=== PATIENT | male | born 1970 | race Caucasian/White ===

== ENCOUNTER 2016-12-15 17:48 | Observation (INO) | payer BC, MEDICARE ==
[~2016-12-15] VITALS: Ht 182.9 cm; Wt 78.7 kg
[~2016-12-15 17:48] MED LIST changes: -ALPR.5T PO; -ORPH100T PO; -OXYC15TA73 PO; -TEMA30CA PO; -VENL75CA86 PO
--- OUTSIDE RECORDS SUMMARY | 2016-12-15 17:52 | XMS REPORT | Continuity of Care Document ---
Author Author [facility] Address Unknown Phone Unavailable Care Team Providers Care Construction Plant Operator Name Role Phone ADA WOMACK MD PCP [phone] Insurance Providers Payer Name Policy Number Subscriber Name Relationship Medicare A And B [id number] Lion Eagle Jr 18 Self / Same As Patient [facility] [id number] Viky Eagle N 01 Advance Directives Directive Response Recorded Date/Time Advanced Directives No 02/01/16 8:54am Chief Complaint and Reason for Visit Chief Complaint Eye Complaint Reason for Visit [id number] Problems Active Problems Medical Problem Onset Date Status Abdominal pain ~10/19/2014 Acute Contusion of hip, left Unknown Acute Cough Unknown Acute Dilantin toxicity Unknown Acute Pancreatitis 10/06/2014 Chronic Medications Current Home Medications Medication Dose Units Route Directions Days/Qty Instructions Start Date Phenytoin Sodium Extended 100 Mg 350 Mg ORAL Twice A Day 10/06/14 Prednisone 20 Mg 20 Mg ORAL Daily@10/06/14 Fexofenadine/Pseudoephedrine 1 Each 1 Each ORAL Daily@10/06/14 Levetiracetam 500 Mg 1,000 Mg ORAL Bid@10/06/14 Docusate Sodium 100 Mg 100 Mg ORAL Twice A Day as needed for Constipation 30 10/13/14 Polyethylene Glycol 119 Gm 17 Gm ORAL Daily 1 10/13/14 Oxycodone/Acetaminophen 1 Tab 1 Tab ORAL Every 6 Hours as needed for Pain 20 10/19/14 Esomeprazole Magnesium 40 Mg 40 Mg ORAL Daily 02/01/16 Lisinopril (Zestril) 10 Mg 10 Mg ORAL Daily 02/01/16 Trazodone Hcl 150 Mg 150 Mg ORAL Bedtime 02/01/16 Ropinirole Hcl 1 Mg 1 Mg ORAL Bedtime 02/01/16 Past Home Medications Medication Directions Ordered Status Levetiracetam 1,000 Mg Tablet, 500 Mg Oral Twice A Day 10/06/14 Discontinued Atenolol/Chlorthalidone 1 Each Tablet, 1 Each Oral Daily@1700 10/06/14 Discontinued Omeprazole 20 Mg Tablet.dr, 40 Mg Oral Daily@06 10/06/14 Discontinued Alprazolam 1 Mg Tablet, 1 Mg Oral Bedtime as needed for Sleep 10/08/14 Discontinued Hydromorphone Hcl 4 Mg Tab, 4 Mg Oral Every 4HRS as needed for Pain 10/13/14 Discontinued Ondansetron 4 Mg Tab.rapdis, 4 Mg Oral Every 6 Hours as needed for Nausea Discontinued Hydromorphone Hcl 2 Mg Tablet, 1-2 Tab Oral Every 6 Hours as needed for Pain 10/24/15 Discontinued Social History Social History Problem Response Recorded Date/Time Onset Date Status Exposure to occupational hazards Yes 10/06/2014 6:47am Query Response Start Date Stop Date Smoking Status Never smoker Hospital Discharge Instructions No hospital discharge instructions. Plan of Care Discharge Date 02/01/16 10:25am Disposition 01 HOME OR SELF-CARE Condition at Discharge Stable Instructions/Education Provided Phenytoin (By mouth) Prescriptions See Medication Section Referrals ADA WOMACK MD - Additional Instructions/Education Stop Dilantin. Stay home from work and rest at home and stay well hydrated until your symptoms resolve. You are at risk for falling. Your dilantin level was too high (37) and may take a day or 2 to drop to the normal range. Call your doctor to arrange follow up care and when to resume Dilantin. Some of your test results may not be complete prior to your leaving the Emergency Department. The Emergency Department is not authorized to give test results over the phone. Please contact the doctor's office listed in this packet of information for your final results. Follow up with your primary care physician or return to the Emergency Department for worsening or worrisome symptoms. * Emergency Department phone number: [phone], x [phone]* MEDICAL RECORD If you need copies of your X-rays, call [phone]. If you need copies of your medical record, including lab results, a signed authorization for release of records will be required. A telephone call for release of Health Information is not allowed. BILLING Billing can sometimes be confusing and frustrating. To help avoid confusion in the future, please take a moment to acquaint yourself with the billing parties for services. SERVICE BILLING CONSTITUTION PARTY Emergency Room Services [facility] Patients will receive bills for services from the appropriate provider. If you have any questions about your [facility] bill, our staff will be happy to assist you. Please call [phone], and ask for the billing department. THANK YOU for choosing [facility] as your emergency care provider! Care Plan and Goals ~~Discharge Care Plan~~ Problem: Dizziness, weakness or slurred speech and confusion. Goal: Decrease in symptoms Instructions: Take medication(s) as directed. Follow home discharge instructions. Follow up with primary care physician or neurologist as directed. Functional Status No functional status results. Allergies, Adverse Reactions, Alerts Allergen Type Severity Reaction Status Last Updated Metaxalone Allergy Intermediate hives Active 10/06/14 Immunizations Name Given Type Status Date Pneumonia Vaccine Received if Current 10/10/14 Historical Historical Date Influenza Vaccine Received if Current 10/10/14 Historical Historical Vital Signs Acute Vital Signs Vital Response Date/Time Temperature (Fahrenheit) 97.9 02/01/2016 10:25am Pulse 101 bpm 02/01/2016 10:25am Respirations 22 02/01/2016 10:25am Height 6 ft 0 in Weight 185 lb Body Mass Index 25.0 kg/m^2 Results Laboratory Results Test Name Result Units Flags Reference Collection Date/Time Result Date/ Time Comments White Blood Count 6.25 10^3uL 4.0-11.0 02/01/2016 9:0302/01/2016 9: 15am Red Blood Count 4.82 10^6uL 4.50-5.50 02/01/2016 9:0302/01/2016 9: 15am Hemoglobin 15.0 g/dL 13.5-17.0 02/01/2016 9:02/01/2016 9:15am Hematocrit 44.60 % 39.00-50.00 02/01/2016 9:0302/01/2016 9:15am Mean Corpuscular Volume 93 FL 80-100 02/01/2016 9:02/01/2016 9: 15am Mean Corpuscular Hemoglobin 31.1 PG 26.0-34.0 02/01/2016 9:2015 9:15am Mean Corpuscular Hemoglobin Concent 33.6 g/dL 31.0-37.0 02/01/2016 9: 02/01/2016 9:15am Red Cell Distribution Width 12.5 % 11.8-15.6 02/01/2016 9:2015 9:15am Platelet Count 384 10^3uL 150-450 02/01/2016 9:02/01/2016 9:15am Mean Platelet Volume 8.5 FL 6.0-9.5 02/01/2016 9:0302/01/2016 9: 15am Neutrophils (%) (Auto) 82 % H 51-67 02/01/2016 9:02/01/2016 9:15am Lymphocytes (%) (Auto) 9 % L 20-46 02/01/2016 9:02/01/2016 9:15am Monocytes (%) (Auto) 7 % 3-11 02/01/2016 9:02/01/2016 9:15am Eosinophils (%) (Auto) 0 % 0-4 02/01/2016 9:0302/01/2016 9:15am Basophils (%) (Auto) 1 % 0-2 02/01/2016 9:02/01/2016 9:15am Neutrophils # (Auto) 5.2 X10^3 02/01/2016 9:03am 02/01/2016 9:15am Lymphocytes # (Auto) 0.6 X10^3 02/01/2016 9:03am 02/01/2016 9:15am Monocytes # (Auto) 0.5 X10^3 02/01/2016 9:03am 02/01/2016 9:15am Eosinophils # (Auto) 0.0 10^3uL 02/01/2016 9:03am 02/01/2016 9:15am Basophils # (Auto) 0.0 10^3uL 02/01/2016 9:03am 02/01/2016 9:15am Erythrocyte Sedimentation Rate 4 mm/hr 0-12 02/01/2016 9:03am 2015 10:06am Urine Collection Type CLEAN CATCH 02/01/2016 9:10a02/01/2016 9: 32am Urine Color Yellow 02/01/2016 9:10a02/01/2016 9:32am Urine Clarity Clear 02/01/2016 9:10a02/01/2016 9:32am Urine pH 5.5 5.0 - 8.0 02/01/2016 9:10a02/01/2016 9:32am Urine Specific [place] 1.025 1.005-1.030 02/01/2016 9:10a2015 9:32am Urine Protein Negative Negative 02/01/2016 9:10a02/01/2016 9:32am Urine Glucose (UA) Negative Negative 02/01/2016 9:10a02/01/2016 9: 32am Urine RBC (Auto) Negative Negative 02/01/2016 9:02/01/2016 9: 32am Urine Ketones Negative Negative 02/01/2016 9:10a02/01/2016 9:32am Urine Nitrite Negative Negative 02/01/2016 9:10a02/01/2016 9:32am Urine Bilirubin Negative Negative 02/01/2016 9:10a02/01/2016 9: 32am Urine Urobilinogen 0.2 mg/dL 0.2-1.0 02/01/2016 9:10a02/01/2016 9: 32am Urine Leukocyte Esterase Negative Negative 02/01/2016 9:10a2015 9:32am Sodium Level 137 mmol/L 135-150 02/01/2016 9:0302/01/2016 9:27am Potassium Level 4.1 mmol/L 3.5-5.1 02/01/2016 9:0302/01/2016 9:27am Chloride Level 104 mmol/L 98-108 02/01/2016 9:0302/01/2016 9:27am Carbon Dioxide Level 25 mmol/L 22-29 02/01/2016 9:0302/01/2016 9: 27am Anion Gap 12.2 MEQ/L 3-15 02/01/2016 9:0302/01/2016 9:27am Blood Urea Nitrogen 13 mg/dL 7-18 02/01/2016 9:0302/01/2016 9:27am Creatinine 0.69 mg/dL L 0.8-1.5 02/01/2016 9:0302/01/2016 9:27am BUN/Creatinine Ratio 19 10-20 02/01/2016 9:02/01/2016 9:27am Estimat Glomerular Filtration Rate 151.4 02/01/2016 9:2015 9:27am Estimated GFR (Non- 125.1 02/01/2016 9:2015 9:27am Glucose Level 99 mg/dL # 70-110 02/01/2016 9:02/01/2016 9:27am Calculated Osmolality 264 mosm/L L 280-300 02/01/2016 9:02/01/2016 9:27am Calcium Level 9.8 mg/dL 8.8-10.8 02/01/2016 9:0302/01/2016 9:27am Calcium/Ionized Calcium Ratio 4.3 mg/dL 3.8-4.6 02/01/2016 9:01/31 9:27am Total Bilirubin 0.4 mg/dL 0.1-1.0 02/01/2016 9:0302/01/2016 9:27am Alkaline Phosphatase 121 U/L 38-126 02/01/2016 9:0302/01/2016 9: 27am Aspartate Amino Transf (AST/SGOT) 50 U/L H 15-37 02/01/2016 9:0301/31 9:27am Alanine Aminotransferase (ALT/SGPT) 69 U/L H 30-65 02/01/2016 9:03am 9:27am Total Protein 7.2 g/dL 6.4-8.5 02/01/2016 9:0302/01/2016 9:27am Albumin 4.4 g/dL 3.4-5.0 02/01/2016 9:0302/01/2016 9:27am Albumin/Globulin Ratio 1.571 1.1-1.8 02/01/2016 9:0302/01/2016 9: 27am Thyroid Stimulating Hormone (TSH) 0.80 uIU/mL 0.46-4.68 02/01/2016 9: 0302/01/2016 9:53am C-Reactive Protein < 0.50 mg/dL 0.0-0.9 02/01/2016 9:03am 02/01/2016 9: 27am Phenytoin (Dilantin) Level 37.7 mcg/mL *H 10.0-20.0 02/01/2016 9:03 9:37am Results called to NATHALIE BUCK IN ER who read back the results. Called by Mojgan Valenzuela at 0936 Procedures No known history of procedures. Encounters Encounter Location Arrival/Admit Date Discharge/Depart Date Attending Provider Departed Emergency Room [facility] 02/01/16 8:34am 02/01/16 10:25am CORTNEY GARCIA DO Recent Diagnosis
[2016-12-15] MEDS ORDERED: HYDROmorphone 1 MG/ML (DILAUDID) SYRINGE IV ONE (18:05)
[2016-12-15] MEDS ORDERED: MAGNESIUM SULFATE 1GM VIAL 2 GM, THIAMINE INJ 100 MG, MULTIVITAMIN INJ 10 ML in D5LR 1,... IV SCH (18:05)
[2016-12-15 18:23] LABS: BASOPHILS % (AUTO) 0 % (0-2); EOSINOPHILS % (AUTO) 0 % (0-4); LYMPHOCYTES # (AUTO) 0.6 X10^3; MEAN CORPUSCULAR VOLUME 96 FL (80-100); MEAN PLATELET VOLUME 9.1 FL (6.0-9.5); MONOCYTES # (AUTO) 0.2 X10^3; MONOCYTES % (AUTO) 5 % (3-11); NEUTROPHILS # (AUTO) 3.5 X10^3; NEUTROPHILS % (AUTO) 79 % (51-67); PLATELET COUNT 305 10^3uL (150-450); WHITE BLOOD COUNT 4.35 10^3uL (4.0-11.0)
[2016-12-15 18:27] LABS: MEAN CORPUSCULAR HEMOGLOBIN 33.6 PG (26.0-34.0)
[2016-12-15 18:31] LABS: ALBUMIN 4.7 g/dL (3.4-5.0); ANION GAP 18.5 MEQ/L (3-15); CALCULATED IONIZED CALCIUM 3.8 mg/dL (3.8-4.6); TOTAL PROTEIN 7.6 g/dL (6.4-8.5)
--- NOTE | 2016-12-15 18:55 | Diagnostic Imaging Report ---
INDICATION: Left hip dislocation. TECHNIQUE: AP pelvis at 6:20 PM CORRELATION STUDY: 10/24/2015 FINDINGS: Bilateral bipolar hip arthroplasties are present. There is disarticulation on the left with the prosthetic femoral head displaced lateral to the acetabular cup. No acute bony abnormality. IMPRESSION: Dislocated left hip prosthesis. Dictated by: Dictated on workstation # [id number]
[2016-12-15] MEDS ORDERED: THIAMINE 100 MG/ML (VITAMIN B1) 2 ML VIAL ONE (18:56)
[2016-12-15] MEDS ORDERED: MAGNESIUM SULFATE 1 GM/2 ML VIAL ONE (18:56)
[2016-12-15] MEDS ORDERED: MULTIVITAMINS (MVI) 2 5 ML VIALS IV ONE (18:57)
--- NOTE | 2016-12-15 18:57 | Diagnostic Imaging Report ---
INDICATION: Left hip dislocation. TECHNIQUE: Two views of left hip at 6:21 PM. CORRELATION STUDY: 10/24/2015 FINDINGS: Bipolar left hip arthroplasty is present. The prosthetic femoral head is displaced laterally and posteriorly superimposed over the posterior margins of the acetabular prosthesis. IMPRESSION: 1. Superior posterior dislocation of the left hip prosthesis. Dictated by: Dictated on workstation # [id number]
[2016-12-15] MEDS ORDERED: TEMA30CA PO (19:23)
[2016-12-15] MEDS ORDERED: VENL75CA86 PO (19:26)
[2016-12-15] MEDS ORDERED: ORPH100T PO (19:26)
[2016-12-15] MEDS ORDERED: ALPR.5T PO (19:26)
[2016-12-15] MEDS ORDERED: OXYC15TA73 PO (19:27)
[2016-12-15] MEDS ORDERED: ONDANSETRON 2 MG/ML (Z0FRAN) 2 ML VIAL IV ONE (19:40)
[2016-12-15] MEDS ORDERED: fentaNYL 100 MCG/2 ML VIAL IV ONE ×2 (19:40→20:00)
[2016-12-15] MEDS ORDERED: LORazepam 2 MG/ML (ATIVAN) 1 ML VIAL IV ONE (20:00)
[2016-12-15] MEDS ORDERED: MIDAZOLAM 2 MG/2 ML (VERSED) VIAL ONE (20:15)
[2016-12-15] MEDS ORDERED: ALFENTANIL 1,000 MCG/2 ML AMP IV ONE (20:15)
--- NOTE | 2016-12-15 20:15 | NUR ---
Yong here from anesthesia, placed patient on 2L/NC at this time. 2019 procedure started, patient relaxed and breathing with eyes closed. 2029 hip reduction completed. Placed knee immobilizer on patient per Dr. Witt. Patient not arousing,02 sats decreased on 2L/NC. Yong assisted breathing with Bag valve mask for a couple of minutes. OPA airway placed, patient maintaining air way on his own, 96% on 2L/NC. Addendum: 12/15/16 at 2309 by [id number] Patient's 02 was on 3L/NC not 2L.
[2016-12-15] MEDS ORDERED: PROPOFOL 20 ML IV ONE (20:17)
[2016-12-15] MEDS ORDERED: SODIUM CHLORIDE 250 ML ONE (20:21)
--- NOTE | 2016-12-15 20:55 | NUR ---
Mariam anesthesia staying in room with patient monitoring until patient fully wakes up, still has OPA in place, on 2L/NC. Yong will let me know when patient awake. Addendum: 12/15/16 at 2309 by [id number] patient was on 3L/NC
--- NOTE | 2016-12-15 21:12 | Diagnostic Imaging Report ---
INDICATION: Hip prosthesis dislocation, postreduction TECHNIQUE: Single views of the left hip, 8:45 PM. CORRELATION STUDY: Earlier same day FINDINGS: The previously noted dislocated left hip prosthesis appears to have been satisfactorily reduced as visualized on single projection. The prosthetic femoral head is superimposed over the acetabulum. IMPRESSION: 1. Apparent interval satisfactory reduction of the previously noted left hip prosthesis dislocation. Dictated by: Dictated on workstation # [id number]
--- NOTE | 2016-12-15 21:30 | NUR ---
Patient awake and talking with family, Ted Murillospinning supervisor in room with Yong. Shemar sats 98% on 2L/NC. Yong left room and instructed HEBER Murillo to stay with patient for 20 min. before taking patient up to room he was going to be admitted to. Addendum: 12/15/16 at 2310 by [id number] patient was on 3L/NC
--- NOTE | 2016-12-15 21:33 | NUR ---
02 decreased to 1L/NC. Addendum: 12/15/16 at 2311 by [id number] 02 was decreased down to 2L/NC at this time.
[2016-12-15] MEDS ORDERED: MULTIVITAMIN INJ 10 ML, THIAMINE INJ 100 MG, MAGNESIUM SULFATE 1GM VIAL 2 GM in D5LR 1,... IV SCH (21:34)
[2016-12-15] MEDS ORDERED: THIAMINE 100 MG/ML (VITAMIN B1) 2 ML VIAL IM SCH (21:35)
[2016-12-15] MEDS ORDERED: ONDANSETRON 2 MG/ML (Z0FRAN) 2 ML VIAL IV PRN (21:35)
[2016-12-15] MEDS ORDERED: HALOPERIDOL 5 MG/ML (HALDOL) 1 ML AMP IM PRN (21:35)
[2016-12-15] MEDS ORDERED: LORazepam 2 MG/ML (ATIVAN) 1 ML VIAL IV PRN (21:35)
--- NOTE | 2016-12-15 21:35 | NUR ---
Spoke with John to give report on patient d/t that is admitting would like hime up there right away. John said, "I will call you back here in a minute."
--- NOTE | 2016-12-15 21:43 | NUR ---
Patient continues talking with . c/o being hungry, 02 sats 98% on 1L/NC, BP 117/53. Addendum: 12/15/16 at 2312 by [id number] Amendment undone in EDM - 12/15/16 at 2313 by [id number] Patient 02 decreased at this time to 1l/NC from 2L/NC Addendum: 12/15/16 at 2314 by [id number] Patient's 02 decreased at this time to 1L/NC from 2L/NC
--- NOTE | 2016-12-15 22:02 | History and Physical (E) ---
History & Physical PCP: Morris Lujan MD CC Left hip pain and alcohol intoxication HPI This is a 46-year-old male who [facility] [place] [facility] with a chief complaint of left hip pain. He was apparently preparing to go out hunting , pivoted on his left leg incorrectly, and spontaneously dislocated his left hip. This is apparently the sixth time this week he has dislocated his left hip. He had a left hip replacement in [address] Oropeza in [place], [place]. He has not had problems with dislocating his hip until this week. He has also had a history of his right hip being replaced. He was intoxicated upon arrival to the emergency department, with a blood alcohol level of 403. He states he drank 8 beers this evening. He was given anesthesia via conscious sedation in the emergency department, and his hip was reduced by the ER physician. Orthopedist aircraft quality control inspector, Dr Kay, has recommended an immobilizer and will see outpatient on Friday. He is now been placed under observation status this evening, to monitor his overall mental and respiratory status. He appears to be maintaining his airway, and is lucid upon my interview with him this evening. Please note: [facility]. 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 HOME MEDICATIONS: Please see list at end of report. FH Father had throat cancer Mother had HTN SH Alcohol intake, reportedly chews tobacco ROS As stated in HPI. Otherwise negative in a 10 point review of systems. OBJECTIVE Temp 98.1 Pulse 92 RR 18 BP 101/63 02 sat 89-95% on 2L GEN: Awake, alert, oriented, NAD HEENT: EOMI, CV: RRR LUNGS: CTA B ABD:Normal bowel sounds. EXTR: No edema INTEG: No rash. NEURO: No focal motor neuro deficit. Weight: 68 kg LABS WBC 4.3, Hgb 15.2, Plt 305 Na 137, K 4.6, Cl 96, HC02 27, BUN 8, SCr 0.61, Gluc 138 AST 166, ALT 128, Alk Phos 165, T bili 0.7 ASSESSMENT 1. Acute alcohol intoxication with alcohol dependence 2. Status post left hip reduction via conscious sedation 3. Mild clinical dehydration 4. Transaminitis secondary to alcoholism 5. 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 Seizure disorder on antiepileptic drug therapy 7. GERD PLAN Patient will be placed under observation status this evening to the ICU for close monitoring of his mental status, and respiratory status. I will initiate alcohol withdrawal protocol per facility order set. Needs-based benzodiazepine administration based on his symptoms. Pain control via IV analgesia will also be initiated, in addition to continuing his home oxycontin. I have reviewed the remainder of his home medications, and will plan to continue those which would be appropriate tonight. As mentioned above, he will need to follow up as an outpatient regarding his left hip dislocation with his orthopedic surgeon in [place]. DVT prophylaxis: SCDs for tonight. Allergies/Home Medications Allergies: Coded Allergies: metaxalone (Unverified Allergy, Intermediate, hives, 10/06/14) Reported Home Medications Scheduled Alprazolam (Alprazolam) 0.5 MG PO TID (Reported) Esomeprazole Magnesium (Nexium) 40 MG PO DAILY (Reported) Fexofenadine/Pseudoephedrine (Bessie-D 24 Hour Tablet) 1 EACH PO DAILY@06 ( Reported) Levetiracetam (Keppra) 1,000 MG PO BID@06,12 (Reported) Lisinopril (Lisinopril) 10 MG PO DAILY (Reported) Orphenadrine Citrate (Orphenadrine Citrate) 100 MG PO BID (Reported) Oxycodone HCl (Oxycontin) 15 MG PO BID (Reported) Phenytoin Sodium Extended (Dilantin) 350 MG PO BID (Reported) Prednisone (Prednisone) 60 MG PO DAILY@06 (Reported) Ropinirole HCl (Ropinirole HCl) 1 MG PO HS (Reported) Temazepam (Temazepam) 30 MG PO HS (Reported) Venlafaxine HCl (Venlafaxine HCl ER) 75 MG PO DAILY (Reported) Discontinued Medications Docusate Sodium (Colace) 100 MG PO BID PRN PRN CONSTIPATION Discontinued Reason: Update list Oxycodone HCl/Acetaminophen (Percocet 5mg/325mg) 1 TAB PO Q6H PRN PRN PAIN Discontinued Reason: Update list Polyethylene Glycol (Miralax) 17 GM PO DAILY Discontinued Reason: Update list Trazodone HCl (Trazodone HCl) 150 MG PO HS (Reported) Discontinued Reason: Update list Copies to: End of Report . MIKI AGUILAR MD Dec 15, 2016 22:02 Discontinued Reason: Update list Copies to: End of Report . MIKI AGUILAR MD Dec 15, 2016 22:02
--- NOTE | 2016-12-15 22:10 | NUR ---
Patient arrives to the med surg floor 2207 via cart accompanied by supervisor malt house, spouse and friend. Admitted to room 301, transferred to bed, knee immobilizer on left knee, changed into gown.
[2016-12-15 22:15] VITALS: BP 112/82
--- NOTE | 2016-12-15 22:30 | NUR ---
Tele med exam done, orders acknowledged, patient drowsy, but awake and verbal.
[2016-12-15 22:32] VITALS: BP 112/82
[2016-12-15 22:35] VITALS: BP 112/82
[2016-12-15] MEDS ORDERED: D5LR 1,000 ML IV ONE (22:41)
[2016-12-15] MEDS ORDERED: SODIUM CHLORIDE FLUSH 10 ML ONE (22:47)
[2016-12-15] MEDS ORDERED: SODIUM CHLORIDE 250 ML IV SCH (22:50)
[2016-12-15] MEDS: HYDROmorphone 1 MG/ML (DILAUDID) SYRINGE IV PRN (23:06)
[2016-12-15] MEDS: LORazepam 2 MG/ML (ATIVAN) 1 ML VIAL IV PRN (23:07)
--- NOTE | 2016-12-15 23:10 | NUR ---
Prn Dilaudid and Ativan given for pain states #14 out of 10 left hip pain.
[2016-12-15 23:53] VITALS: BP 125/76
[2016-12-16] MEDS: LORazepam 2 MG/ML (ATIVAN) 1 ML VIAL IV PRN (02:03)
--- NOTE | 2016-12-16 02:08 | NUR ---
Prn Ativan given, for anxiousness
[2016-12-16 04:01] VITALS: BP 112/69
[2016-12-16] MEDS: HYDROmorphone 1 MG/ML (DILAUDID) SYRINGE IV PRN ×2 (04:13→08:30)
[2016-12-16] MEDS ORDERED: predniSONE 20 MG (DELTASONE) TABLET PO SCH (06:00)
[2016-12-16] MEDS ORDERED: LEVETIRACETAM 500 MG (KEPPRA) TABLET PO SCH (06:00)
[2016-12-16 06:26] LABS: MEAN CORPUSCULAR VOLUME 97 FL (80-100); MEAN PLATELET VOLUME 9.1 FL (6.0-9.5); PLATELET COUNT 251 10^3uL (150-450); WHITE BLOOD COUNT 4.75 10^3uL (4.0-11.0)
[2016-12-16 06:27] LABS: MEAN CORPUSCULAR HEMOGLOBIN 33.1 PG (26.0-34.0)
[2016-12-16 06:31] LABS: ALBUMIN 3.6 g/dL (3.4-5.0); ANION GAP 12.8 MEQ/L (3-15); MAGNESIUM* 2.3 mg/dL (1.6-2.3)
[2016-12-16 06:39] LABS: BAND NEUTROPHILS % 1 % (0-6); EOSINOPHILS % 0 % (0-4); LYMPHOCYTES # 2.1 #; MONOCYTES # 0.4 #; MONOCYTES % 9 % (3-11); SEGMENTED NEUTROPHILS % 46 % (51-67); TOTAL CELLS COUNTED 100
[2016-12-16 06:40] LABS: RBC MORPH NORMAL (NORMAL)
[2016-12-16] MEDS ORDERED: PANTOPRAZOLE 40 MG (PROTONIX) TAB PO SCH (07:00)
[2016-12-16 07:52] VITALS: BP 128/79
--- NOTE | 2016-12-16 07:58 | NUR ---
NUTRITION ASSESSMENT Level 1 Patient: Lion Meeks Jr. Age/Sex: 46/M Date Screened: 12-16-16 Weight: 173.1#/78.7 kg Height: 72 inches Primary Diagnosis: ETOH intoxication Diet Order: CL Relevant labs: serum alcohol 403.0 (yesterday), glucose 81, AST 160, ALT 108 Food allergies: N Nutrition Assessment Criteria Age over 80: N Body Mass Index (BMI) under 19: N Admission Screening Indicates Risk? 6 points Moderate/High Risk Diagnosis: 3 points TPN or PPN: N NPO or clear liquid diet: Yes Serum Glucose <70 or >180: N Hgb A1c >6.7: N/A Total: 9 points Risk Screen: __ Patient at low nutritional risk based on available data; reevaluate in 5-7 days __ Patient at moderate nutritional risk based on available data; reevaluate in 3-5 days _X_ Patient at high nutritional risk; complete Nutrition Assessment within 48 hours of admission.
[2016-12-16] MEDS ORDERED: THIAMINE 100 MG (VITAMIN B-1) TAB PO SCH (08:00)
--- NOTE | 2016-12-16 08:05 | NUR ---
Patient was able to stand at the side of the bed and void 500 cc's. Urine sample sent to the lab.
--- NOTE | 2016-12-16 08:39 | PAIN MANAGEMENT ---
Date of note: 12/15/2016 Procedure: Sedation for left hip dislocation This is a 46-year-old male patient who presents in the ER under the care of Dr. Witt. Anesthesia was consulted for the purpose of sedation for a left hip dislocation. Informed consent was obtained per physician. History was obtained. Please see anesthesia record. Medications given were Versed 2 mg with a mixture of alfentanil 1000 mcg in propofol of 10 mL of that mix with 4 mL given. Sedation was achieved. The left hip was reduced per Dr. Witt. The patient tolerated the procedure well. The family came back to the room and all questions were answered. The patient woke up and answered all questions and is doing fine. He is going to stay the evening due to the amount of drugs received and alcohol level. The patient was stable. He was on 2 liters of O2 per nasal cannula throughout the procedure. The patient dropped saturations from the upper 90s into the mid 80s x1. With jaw thrust and a little bag valve mask with some positive pressure he popped right back up to the 90s and remained there throughout the remainder of the procedure.
[2016-12-16] MEDS ORDERED: PHENYTOIN ER 100 MG (DILANTIN) CAPSULE PO SCH (09:00)
[2016-12-16] MEDS ORDERED: ALPRAZolam 0.5 MG (XANAX) TAB PO SCH (09:00)
[2016-12-16] MEDS ORDERED: PSEUDOEPHEDRINE PO SCH (09:00)
[2016-12-16] MEDS ORDERED: VENlafaxine XR 75 MG (EFFEXOR XR) CAP PO SCH (09:00)
[2016-12-16] MEDS ORDERED: FOLIC ACID 1 MG TAB PO SCH (09:00)
[2016-12-16] MEDS ORDERED: ORPHENADRINE 100 MG PO SCH (09:00)
[2016-12-16] MEDS ORDERED: LORATADINE PO SCH (09:00)
[2016-12-16 09:05] LABS: BILIRUBIN,URINE Negative (Negative); CLARITY,URINE Clear; COLOR,URINE Yellow; GLUCOSE, URINE (UA) Negative (Negative); LEUKOCYTE ESTERASE ,URINE Negative (Negative); PH,URINE 5.5 (5.0 - 8.0); UROBILINOGEN,URINE 0.2 mg/dL (0.2-1.0)
--- NOTE | 2016-12-16 09:15 | NUR ---
Patient was able to walk the length of the fonseca slowly but without any significant difficulty. He states gait is awkward with an immobilizer on but it does not impede his ability to walk.
[2016-12-16 09:18] LABS: AMPHETAMINE SCREEN, URINE Negative (Negative); CANNABINOID SCREEN, URINE Negative (Negative); METHAMPHETAMINE SCREEN URINE S NEGATIVE (NEGATIVE); OPIATE SCREEN URINE Positive (Negative); PROPOXYPHENE STAT NEGATIVE (NEGATIVE)
[2016-12-16] MEDS ORDERED: oxyCODONE ER 20 MG (OxyCONTIN CR) TAB PO SCH (09:20)
--- NOTE | 2016-12-16 09:43 | Discharge Instructions (E) ---
Discharge Instructions Instructions Avoid Alcohol Caution with hip and certain movements. F/U with physicians in [place] Activity Instructions as tolerates gently Doctor's Appointment [facility] Discharge Diet: Regular Darshana [place] APRN December 16, 2016 09:43 Morris Lujan MD December 16, 2016 20:28
--- NOTE | 2016-12-16 09:45 | NUR ---
Patient was able to eat a regular diet without difficulty. No complaint of nausea.
--- NOTE | 2016-12-16 09:46 | Discharge Summary (E FT) ---
Discharge Summary (E FT) Admit Date Dec 15, 2016 at 21:33 Discharge Date December 16, 2016 0945 Admitting Provider Dann Harrison MD Primary Care Provider Morris Lujan MD Attending Provider Dann Harrison MD Consulting Provider Hospital Course Summary HPI This is a 46-year-old male who presents to the [facility] are tonight with a chief complaint of left hip pain. He was apparently preparing to go out hunting , pivoted on his left leg incorrectly, and spontaneously dislocated his left hip. This is apparently the sixth time this week he has dislocated his left hip. He had a left hip replacement in [address] Oropeza in [place], [place]. He has not had problems with dislocating his hip until this week. He has also had a history of his right hip being replaced. He was intoxicated upon arrival to the emergency department, with a blood alcohol level of 403. He states he drank 8 beers this evening. He was given anesthesia via conscious sedation in the emergency department, and his hip was reduced by the ER physician. Orthopedist charge preparation technician, Dr Kay, has recommended an immobilizer and will see outpatient on Friday. He is now been placed under observation status this evening, to monitor his overall mental and respiratory status. He appears to be maintaining his airway, and is lucid upon my interview with him this evening. Overnight he did well, pain controlled, no issues on tele, VSS. He ambulated this am and ate well for breakfast- requesting to go home Pt seen and examined with PROGRAM PROJECT MANAGER and agree with above. Pt is going back to [place] next week and is established with ortho there. will call for appt there next week. AH Vital Signs Date Time Temp Pulse Resp B/P Pulse Ox O2 Delivery O2 Flow Rate FiO2 12/16/16 08:22 79 12/16/16 07:52 97.3 18 128/79 95 Room air 12/15/16 23:00 1 GEN: Awake, alert, oriented, NAD- here and friends HEENT: EOMI, PERRLA CV: RRR LUNGS: CTA B ABD:Normal bowel sounds. EXTR: No edema INTEG: No rash. MS Left leg brace on, good movement, pulses good, no pain currently NEURO: No focal motor neuro deficit. Weight: 68 kg LABS WBC 4.3, Hgb 15.2, Plt 305 Na 137, K 4.6, Cl 96, HC02 27, BUN 8, SCr 0.61, Gluc 138 AST 166, ALT 128, Alk Phos 165, T bili 0.7 ASSESSMENT 1. Acute alcohol intoxication with alcohol dependence 2. Status post left hip dislocation, s/p reduction via conscious sedation in the ED 3. Mild clinical dehydration 4. Transaminitis secondary to alcoholism 5. 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 Seizure disorder on antiepileptic drug therapy 7. GERD PLAN: Patient will go home today to f/u with his doctors in [place]- he did not want to go to [place] since he works in [place]. will arrange all appts. He did well overnight, ate well, no new issues, continue same home meds, He wants released today. He wants to go [employer]. Discharge Disposition Home with F/U with Physicians in [place] Continue to wear leg brace to remind you to be cautious with hip Continued Medications: Alprazolam (Alprazolam) 0.5 Mg Tablet 0.5 MG PO TID TAB Esomeprazole Magnesium (Nexium) 40 Mg Capsule.dr 40 MG PO DAILY CAP Fexofenadine/Pseudoephedrine (Bessie-D 24 Hour Tablet) 1 Each Tab.er.24h 1 EACH PO DAILY@06 Levetiracetam (Keppra) 500 Mg Tablet 1000 MG PO BID@06,12 Lisinopril (Lisinopril) 10 Mg Tablet 10 MG PO DAILY TAB Orphenadrine Citrate (Orphenadrine Citrate) 100 Mg Tablet.er 100 MG PO BID TAB Oxycodone HCl (Oxycontin) 15 Mg Tab.er.12h 15 MG PO BID TAB Phenytoin Sodium Extended (Dilantin) 100 Mg Capsule 350 MG PO BID Prednisone (Prednisone) 20 Mg Tablet 60 MG PO DAILY@06 Ropinirole HCl (Ropinirole HCl) 1 Mg Tablet 1 MG PO HS TAB Temazepam (Temazepam) 30 Mg Capsule 30 MG PO HS CAP Venlafaxine HCl (Venlafaxine HCl ER) 75 Mg Cap.er.24h 75 MG PO DAILY CAP Follow up Instructions Avoid Alcohol Caution with hip and certain movements. F/U with physicians in [place] Copies to: End of Report . Darshana Beach APRN December 16, 2016 09:46 Morris Lujan MD December 16, 2016 20:31
[2016-12-16] MEDS ORDERED: NS FLUSH 10 ML PRN IV (10:05)
[2016-12-16] MEDS ORDERED: NS FLUSH 3 ML PRN IV (10:05)
--- NOTE | 2016-12-16 10:41 | NUR ---
Discharge instructions given to pt and . Both verbalize understanding. Knee brace inplace to left leg. Pt denies needs or c/o
--- NOTE | 2016-12-16 10:45 | NUR ---
Pt dismissed to home with per w/c. skin warm and dry. resp nonlab. pt without c/o
[2016-12-16] MEDS ORDERED: rOPINIRole 1 MG (REQUIP) TABLET PO SCH (21:00)
[2016-12-17] MEDS ORDERED: NS FLUSH 3 ML DAILY IV SCH (09:00)
== END 2016-12-16 10:45 | disposition home or self-care (01) ==
LOC: ED 17:49 → MED/SURG 21:33
PROVIDERS: ADMIT Hospitalist; ATTEND Hospitalist
PROC: 0NS Head and Facial Bones, Reposition (ICD-10-PCS; principal; 2016-12-15)
DX: F10.220 Alcohol dependence with intoxication, uncomplicated (principal); T84.021A Dislocation of internal left hip prosthesis, initial encounter; E86.0 Dehydration; R74.0 Nonspecific elevation of levels of transaminase and lactic acid dehydrogenase [LDH]; M33.20 Polymyositis, organ involvement unspecified; M33.90 Dermatopolymyositis, unspecified, organ involvement unspecified; G40.909 Epilepsy, unspecified, not intractable, without status epilepticus; K21.9 Gastro-esophageal reflux disease without esophagitis; Y90.8 Blood alcohol level of 240 mg/100 ml or more; F41.8 Other specified anxiety disorders; F17.220 Nicotine dependence, chewing tobacco, uncomplicated; Y83.1 Surgical operation with implant of artificial internal device as the cause of abnormal reaction of the patient, or of later complication, without mention of misadventure at the time of the procedure; Z79.52 Long term (current) use of systemic steroids; Z79.899 Other long term (current) drug therapy
CPT/HCPCS: 27266; 36415; 72170; 73501; 73502; 80053; 80307; 80320; 81003; 83735; 85025; 96365; 96366; 96372; 96375; 96376; 99218; 99284; J1170; J2060; J2250; J2405; J3010; J3411; J3475; J7050; 27265

== ENCOUNTER → 2016-12-15 | Outpatient (CLI) | payer BC, MEDICARE ==
[~2016-12-15] MED LIST: ALPR.5T PO; ALPR1TAB7 PO; ATEN1TAB3 PO; DOCU-243 PO; FEXO1TAB43 PO; HDR4T PO; HYDR2TAB14 PO; LEVE100015 PO; LEVE500T PO; LSNP10T PO; NF-ESOM40C PO; OMEP20TA PO; ONDA4TAB11 PO; ORPH100T PO; OXYC15TA73 PO; OXYC1TAB87 PO; PHEN100C5 PO; POLY119P PO; PRED20TA PO; ROPI1TAB2 PO; TEMA30CA PO; TRAZ150T72 PO; VENL75CA86 PO
== END ==
LOC: EMS 17:25
PROVIDERS: ATTEND Family Medicine
DX: M25.552 Pain in left hip (principal); Z96.643 Presence of artificial hip joint, bilateral; M25.852 Other specified joint disorders, left hip

== ENCOUNTER → 2016-12-18 | Outpatient (REF) | payer MEDICARE ==
[~2016-12-18] MED LIST changes: +ALPR.5T PO; +ORPH100T PO; +OXYC15TA73 PO; +TEMA30CA PO; +VENL75CA86 PO
== END ==
LOC: LAB 15:34
PROVIDERS: ATTEND Family Medicine
DX: G40.89 Other seizures (principal)
CPT/HCPCS: 80185